=== PATIENT | female | born 1960 | race Caucasian/White ===

== ENCOUNTER 2019-07-20 11:02 | Outpatient (CLI) | payer BC, SELFPAY ==
--- NOTE | 2019-07-20 11:06 | ECG_ITS ---
Measurements Intervals [place] Rate: 69 P: 60 WA: 146 QRS: 30 QRSD: 86 T: 43 QT: 378 QTc: 406 Interpretive Statements SINUS RHYTHM BASELINE ARTIFACT- I, III, AVR, AVL, AVF, V4 NORMAL ECG Electronically Signed On 07-20-2019 11:49:27 [employer]IL EDITOR by Luis Benedict D.O.
== END 2019-07-20 11:03 | disposition home or self-care (01) ==
PROVIDERS: PCP Internal Medicine; Visit Provider Otolaryngology
DX: E78.00 Pure hypercholesterolemia, unspecified (principal); Z01.810 Encounter for preprocedural cardiovascular examination
CPT/HCPCS: 93005

== ENCOUNTER 2019-07-31 01:29 | Day surgery (SDC) | payer BC, SELFPAY ==
[2019-07-18 13:26] VITALS: BMI 27.3
[2019-07-31] VITALS (17 sets, daily range): BP systolic 114–145; BP diastolic 66–84; PULSE 68–97; RESP 8–20; TEMP 36.6–36.9; O2SAT 91–100; BMI 27.8
--- NOTE | 2019-07-31 08:06 | WPDANESEPPF ---
Anes - Initial Pre Proc Eval Procedure: Operation Date: 07/31/19 13:00 Proposed Procedures p Total Thyroidectomy with Frozen Section and Biopsy, Facial Nerve Monitor - Aryan Arcos MD Date/Time: 07/31/19 08:06 Surgeon: Aryan Arcos MD Pre Op Diagnosis: Thyroid Nodule Patient Data Age: 59 Gender: F Height: 1.55 m Weight: 65.77 kg Allergies Allergy/AdvReac Type Severity Reaction Status Date / Time No Known Allergies Allergy Verified 06/13/19 14:39 Home Medications Medication Instructions Recorded Confirmed Type alprazolam 0.5 mg tablet 0.5 mg PO BID PRN #30 tablet 06/13/19 07/18/19 Rx atorvastatin 20 mg tablet 20 mg PO DAILY #90 tablet 06/19/19 07/18/19 Rx Patient hx anesthesia problems: none Family hx anesthesia problems: none PMFSH Past Medical History Medical History (Updated 07/31/19 @ 08:07 by Saeid Fitch MD) Anxiety Hypercholesterolemia Overweight (BMI 25.0-29.9) Social History Social History Smoking status: Never smoker Second hand tobacco smoke exposure: No Smoking end date: 06/07/07 Alcohol intake: current Anes - Eval Final PreProcedure Day of Procedure 07/31/19 08:06 Patient weight: overweight Heart: regular rate and rhythm Lungs: clear to auscultation and normal air movement Airway: Mallampati scale class II Neurological: alert and oriented Last oral intake: >/= 8 hours ASA classification: II Emergent: no Anesthetic plan: proceed Anesthesia type and monitoring: general ETT Informed Consent: The patient's anesthetic plan and its attendant risks and benefits were discussed with the patient/family/POA. Questions were solicited and answers provided to the satisfaction of the patient/family/POA.
[2019-07-31] MEDS: LACTATED RINGERS 1,000 ML 30 ML IV CONT ×3 (11:30→17:26)
--- NOTE | 2019-07-31 11:57 | SUR.PREOP ---
1115; PT STATES SHE IS POST MENOPAUSAL FOR 5-6 YEARS.
--- NOTE | 2019-07-31 12:02 | WPDHPUPDATE1 ---
History and Physical Update Update Date/Time: 07/31/19 12:02 History and Physical has been reviewed, including an updated exam of the patient. There are NO changes in the patient's condition. Risks, benefits, and alternatives have been discussed and questions answered. Patient agrees to proceed with procedure. Total thyroidectomy.
[2019-07-31] MEDS: ceFAZolin 2 GM/D5W 50 ML 2 GM/50 ML BAG IVPB (12:29)
[2019-07-31] MEDS: LIDO 1%/EPINEPHRINE 1:100,000 20 ML VIAL 10 ML INFILTRATE (12:52)
--- NOTE | 2019-07-31 15:06 | PM.PROC ---
Procedure Note - Detailed Date of procedure: 07/31/19 Pre-op diagnosis: Thyroid Nodule Post-op diagnosis: same Procedure performed: Total thyroidectomy with laryngeal nerve monitoring Description of procedure: On the date of the procedure the patient was met in the preoperative area. The risks and benefits of the procedure reviewed with the patient who elected to proceed.? The patient was brought back to the operating room by the anesthesia team and underwent general endotracheal anesthesia using the glidescope to visualize the NIM tube being appropriately placed.? Once an adequate plane of anesthesia was obtained a timeout was performed to assure the correct patient identity and procedure to be performed which they were. The patient's neck landmarks were marked and the proposed incision was injected with 1% lidocaine with 1:100,000 epinephrine.? The patient was then prepped and draped in the normal fashion for a thyroidectomy.? Neuro monitoring with a NIM endotracheal tube and nerve monitor were utilized throughout the surgery.? A shoulder roll was placed. A 5-6 cm incision was made two finger breadths above the sternal notch in a skin crease.?The incision was carried through subcutaneous tissue to the subcutaneous fat.? Electrocautery was used down to the level of the platysma which was incised. The strap muscles were identified and at the midline through the raphae.? The thyroid was identified and the strap muscles were elevated off of the left lobe. The left thyroid lobe was retracted medially and blunt dissection was carried out to free the thyroid from the surrounding strap muscles.? The superior pole of the thyroid was identified and the vessels were dissected and cauterized and ligated using harmonic scalpel.? The inferior pole was then identified and the vessels were similarly ligated with harmonic scalpel.? The thyroid was retracted medially and the superior parathyroid gland was identified and was dissected free from the thyroid gland.? The recurrent laryngeal nerve was as then identified and dissected free of surrounding tissue. The nerve was confirmed with the prass probe as intact and the correct anatomic tissue. With the thyroid free from the recurrent nerve, it was then elevated and retracted medially and dissected free from the trachea. Scruggs?s ligament was taken down with bipolar and monopolar cautery.? The pyramidal lobe was also dissected free from surrounding tissue using harmonic. Once completed, the left lobe was placed back into the paratracheal bed and attention directed to the right side. Before doing that, the recurrent laryngeal nerve was confirmed to be stimulating and intact once again. Attention was then directed to the right thyroid lobe. It was retracted medially and blunt dissection was carried out to free the thyroid from the surrounding strap muscles.? The superior pole of the right thyroid was identified and the vessels were dissected and cauterized and ligated using harmonic scalpel.? The inferior pole was then identified and the vessels were similarly ligated with harmonic scalpel.? The thyroid was retracted medially and the superior parathyroid gland was identified and was dissected free from the thyroid gland.? The recurrent laryngeal nerve was as then identified and dissected free of surrounding tissue. The nerve was confirmed with the prass probe as intact and the correct anatomic tissue. The remaining scruggs's ligament was then taken down using bipolar and monopolar cautery. The specimen in its entirety was then removed from the patient, oriented correctly with a left superior lobe suture placed. The specimen was examined, no evidence of parathyroid tissue being removed was noted. The right recurrent laryngeal nerve was found to be intact and confirmed with prass probe on the nerve monitor. The wound cavity was examined carefully. No bleeding was noted. Hemostasis obtained and confirmed with bipolar cautery.
[2019-07-31 15:54] LABS: Blood Urea Nitrogen 15 mg/dL (7-17); Carbon Dioxide 26 mmol/L (22-30); Chloride 102 mmol/L (98-107); Estimated CRCL calculation 59 ml/min; Estimated Glomerular Filt Rate > 60; Glucose 136 mg/dL (65-105); Phosphorus 4.4 mg/dL (2.5-4.5); Potassium 4.6 mmol/L (3.4-5.0); Sodium 138 mmol/L (137-145)
--- NOTE | 2019-07-31 16:23 | SUR.PHASEI ---
DR. CHAPA CALLED W/ PTH AND CALCIUM LEVELS
[2019-07-31] MEDS: HYDROMORPHONE HCL 1 MG/ML INJ 0.25 MG IV PUSH ×4 (16:30→17:10)
--- NOTE | 2019-07-31 16:57 | SUR.PHASEI ---
SPOUSE ED UPDATED
[2019-07-31] MEDS: ONDANSETRON INJ 4 MG/2 ML VIAL IV PUSH ×2 (17:23→18:15)
[2019-07-31] MEDS: SCOPOLAMINE 1.5 MG PATCH TRANSDERM (18:30)
--- NOTE | 2019-07-31 20:23 | SUR.PHASEII ---
1955:NAUSEA RESOLVED AND PAIN LEVEL IMPROVED AT TIME OF D/C. DC'D PER CRITERIA.
== END 2019-07-31 19:58 | disposition home or self-care (01) ==
PROVIDERS: PCP Internal Medicine; Visit Provider Otolaryngology
PROC: (CPT 60240; principal; 2019-07-31 13:00)
DX: D34 Benign neoplasm of thyroid gland (principal); E78.00 Pure hypercholesterolemia, unspecified; F41.9 Anxiety disorder, unspecified
CPT/HCPCS: 60240; 36415; 80069; 83970; 88307; A9270; J0131; J0330; J0690; J1100; J1170; J1200; J2250; J2405; J2704; J3010; J7120

== ENCOUNTER 2019-08-29 09:05 | Outpatient (CLI) | payer BC, SELFPAY ==
--- NOTE | ~2019-08-29 | MM_ITS ---
EXAMINATION: MM screening [facility] BI w oenil HISTORY: Screening mammogram TECHNIQUE: Craniocaudal and mediolateral oblique 3-D tomosynthesis images were obtained and synthetic 2-D images were generated. CAD analysis was submitted and interpreted. COMPARISON: 08/25/2018, 08/23/2017, 08/17/2016 bilateral digital screening mammogram examinations BREAST PARENCHYMAL COMPOSITION: There are scattered areas of fibroglandular density. FINDINGS: There is no evidence of suspicious mass, calcification, or architectural distortion to sugg est malignancy in either breast. There has been no suspicious interval change. IMPRESSION: 1. No mammographic evidence of malignancy. 2. Recommend routine screening mammography in one year. BI-RADS Category 1: Negative Reviewed, dictated and finalized at location A.
== END 2019-08-29 09:06 | disposition home or self-care (01) ==
PROVIDERS: PCP Internal Medicine; Visit Provider Obstetrics & Gynecology
DX: Z12.31 Encounter for screening mammogram for malignant neoplasm of breast (principal)
CPT/HCPCS: 77063; 77067

== ENCOUNTER 2020-02-26 14:25 | Outpatient (CLI) | payer BC, SELFPAY ==
[2020-02-26 15:00] LABS: Add Urine Microscopic? YES; Appearance Urine Clear (Clear); Bacteria Urine Trace /hpf; Bilirubin Urine Negative (Negative); Blood Urine Negative (Negative); Color Urine Straw (Yellow); Glucose Urine UA Negative (Negative); Ketones Urine Negative (Negative); Leukocyte Esterase Ur 2+ LEU/UL (NEGATIVE); Nitrate Urine Negative (Negative); Protein Urine Negative (Negative); Specific Grav Ur 1.011 (1.001-1.035); Squamous Epithelial Cell Urine Rare /hpf (Few); Urobilinogen Urine Negative mg/dL (<2.0); WBC Urine 31-50 /hpf (0-3)
== END 2020-02-26 14:26 | disposition home or self-care (01) ==
LOC: ANHLAB 14:27
PROVIDERS: PCP Internal Medicine; Visit Provider Physician Assistant
DX: R30.0 Dysuria (principal)
CPT/HCPCS: 81001; 87086

== ENCOUNTER 2020-10-21 08:47 | Outpatient (CLI) | payer BC, SELFPAY ==
--- NOTE | ~2020-10-21 | MM_ITS ---
EXAMINATION: MM screening [facility] BI w oneil HISTORY: Screening TECHNIQUE: Craniocaudal and mediolateral oblique 3-D tomosynthesis images were obtained and synthetic 2-D images were generated. CAD analysis was submitted and interpreted. COMPARISON: Comparison to multiple prior studies sequentially, with oldest reviewed study dated 08/02. BREAST PARENCHYMAL COMPOSITION: Breast composed of scattered areas of fibroglandular density. FINDINGS: There is no evidence of suspicious mass, calcification, or architectural distortion to sugg est malignancy in either breast. There has been no suspicious interval change. IMPRESSION: 1. No mammographic evidence of malignancy. 2. Recommend routine screening mammography in one year. BI-RADS Category 1: Negative Reviewed, dictated and finalized at location B.
== END 2020-10-21 08:48 | disposition home or self-care (01) ==
LOC: ANHIMG 08:49
PROVIDERS: PCP Internal Medicine; Visit Provider Obstetrics & Gynecology
DX: Z12.31 Encounter for screening mammogram for malignant neoplasm of breast (principal)
CPT/HCPCS: 77063; 77067

== ENCOUNTER 2021-09-04 13:09 | Outpatient (CLI) | payer BC, SELFPAY ==
--- NOTE | ~2021-09-04 | US_ITS ---
EXAMINATION: US pelvic complete w TV EXAM DATE: 09/04/2021 14:16 INDICATION: R10.2 - Pelvic and perineal pain. TECHNIQUE: Pelvic transabdominal and transvaginal sonogram was performed. There are multiple graysca le and Doppler images available for interpretation. There is no prior study for comparison. FINDINGS: Uterus measures 6.4 x 3.0 x 2.0 cm, and is morphologically normal. Endometrial stripe darren sures 4 mm, within normal limits. There is no free pelvic fluid. Right adnexa: The ovary measures 1.4 x 1.3 x 1.0 cm and is morphologically normal. Ovarian vascular f low confirmed. Left adnexa: The ovary measures 1.8 x 1.9 x 1.2 cm and is morphologically normal. Ovarian vascular fl ow confirmed. IMPRESSION: Unremarkable pelvic ultrasound exam. Reviewed, dictated and finalized at location B.
== END 2021-09-04 13:10 | disposition home or self-care (01) ==
PROVIDERS: PCP Internal Medicine; Visit Provider Obstetrics & Gynecology
DX: R10.2 Pelvic and perineal pain (principal)
CPT/HCPCS: 76830; 76856

== ENCOUNTER 2021-10-23 10:33 | Outpatient (CLI) | payer BC, SELFPAY ==
--- NOTE | ~2021-10-23 | MM_ITS ---
EXAMINATION: MM screening [facility] BI w oneil HISTORY: Screening mammogram TECHNIQUE: Craniocaudal and mediolateral oblique 3-D tomosynthesis images were obtained and synthetic 2-D images were generated. CAD analysis was submitted and interpreted. COMPARISON: 10/21/2020, 08/29/2019, 08/25/2018 BREAST PARENCHYMAL COMPOSITION: There are scattered areas of fibroglandular density. FINDINGS: There is no suspicious mass, calcification, or architectural distortion to suggest malignan cy in either breast. There has been no suspicious interval change. IMPRESSION: 1. No mammographic evidence of malignancy. 2. Recommend routine screening mammography in one year. BI-RADS Category 1: Negative Reviewed, dictated and finalized at location A.
== END 2021-10-23 10:34 | disposition home or self-care (01) ==
LOC: ANHIMG 10:33
PROVIDERS: PCP Internal Medicine; Visit Provider Obstetrics & Gynecology
DX: Z12.31 Encounter for screening mammogram for malignant neoplasm of breast (principal)
CPT/HCPCS: 77063; 77067